=== PATIENT | female | born 1965 | race Caucasian/White ===

== ENCOUNTER → 2016-03-15 | Outpatient (CLI) | payer BC ==
[~2016-03-15] MED LIST: CLON0.5T3 PO
== END | disposition home or self-care (01) ==
LOC: C.PAPS 07:55
PROVIDERS: ATTEND Obstetrics & Gynecology
DX: Z01.419 Encounter for gynecological examination (general) (routine) without abnormal findings (principal)

== ENCOUNTER → 2016-08-16 | Outpatient (CLI) | payer BC | END | disposition home or self-care (01) | LOC: C.LABSPEC 11:18 | PROVIDERS: ATTEND Family Medicine | DX: N39.0 Urinary tract infection, site not specified (principal) ==

== ENCOUNTER → 2016-09-21 | Outpatient (CLI) | payer BC ==
--- NOTE | 2016-09-22 07:38 | MAMMOGRAPHY REPORT ---
BILATERAL DIGITAL SCREENING MAMMOGRAM TOMOSYNTHESIS WITH CAD: 09/21/2016 CLINICAL HISTORY: Routine screening. Patient has no complaints. TECHNIQUE: Breast tomosynthesis in addition to standard 2D mammography was performed. Current study was also evaluated with a Computer Aided Detection (CAD) system. COMPARISON: Comparison is made to exams dated: 09/11/2015 mammogram, 09/10/2014 mammogram - [facility], 07/02/2013 mammogram, 06/03/2012 mammogram, 04/20/2011 mammogram, and 04/20/2010 mammog yoly. BREAST COMPOSITION: The tissue of both breasts is heterogeneously dense, which may obscure small mas ses. FINDINGS: There is stable asymmetry in the superior posterior right breast. No new suspicious mass, architectural distortion or cluster of microcalcifications is seen bilaterally. IMPRESSION: ACR BI-RADS CATEGORY 1: NEGATIVE There is no mammographic evidence of malignancy. A 1 year screening mammogram is recommended. The pa tient will receive written notification of the results. Approximately 10% of breast cancers are not detected with mammography. A negative mammographic report should not delay biopsy if a clinically suggestive mass is present. Zamzam Gleason M.D. ay/:09/21/2016 16:03:38 [employer]: Radhika BRYANT(Marina)([place]), [facility] letter sent: Normal 1/2 BI-RADS Code: ACR BI-RADS Category 1: Negative
== END | disposition home or self-care (01) ==
LOC: C.MAMM 12:17
PROVIDERS: ATTEND Obstetrics & Gynecology
DX: Z12.31 Encounter for screening mammogram for malignant neoplasm of breast (principal)

== ENCOUNTER → 2017-03-25 | Outpatient (CLI) | payer OTHER | END | disposition home or self-care (01) | LOC: C.PAPS 13:20 | PROVIDERS: ATTEND Obstetrics & Gynecology | DX: Z01.419 Encounter for gynecological examination (general) (routine) without abnormal findings (principal) ==

== ENCOUNTER 2017-05-14 10:52 | Emergency (ER) | payer OTHER ==
[~2017-05-14] VITALS: Ht 170.2 cm; Wt 77.9 kg
[2017-05-14 11:03] VITALS: TEMP 37; Ht 170.2 cm; Wt 77.9 kg
[2017-05-14] MEDS ORDERED: IBUP-1050 PO (12:01)
--- NOTE | 2017-05-14 12:08 | DIAGNOSTIC IMAGING REPORT ---
L KNEE 3 VIEWS, R KNEE 3 VIEWS CLINICAL HISTORY: 52 years-old Female presenting with L knee pain, bilateral knee injury on ice while skating. TECHNIQUE: Frontal, lateral, and sunrise views of the right and left knees were obtained. COMPARISON: None. FINDINGS: Right knee: No acute fracture or malalignment. No advanced degenerative change. No radiographic soft tissue abnormality. Left knee: No acute fracture or malalignment. Minimal osteophytosis at the patellofemoral compartment. Trace knee joint effusion. IMPRESSION: 1. No acute osseous injury of the right or left knee. 2. Minimal degenerative change at the left patellofemoral compartment with trace knee joint effusion. Electronically signed by: Tan Manriquez M.D. 05/14/2017 12:07 PM Dictated Date/Time: 05/14/2017 12:06 PM
[2017-05-14 12:42] VITALS: BP 122/79; PULSE 68; O2SAT 98
--- NOTE | 2017-05-14 13:50 | EMERGENCY ROOM VISIT NOTE ---
History First contact with patient: 11:06 Chief Complaint: KNEEPAIN Stated Complaint: SWOLLEN L KNEE, FELL, CHECK R ALSO History of Present Illness The patient is a 52 year old female who presents to the Emergency Room with complaints of bilateral knee pain, left worse than right after falling 5 days ago while ice skating [place] the [employer]. The patient reports that she fell directly on the front of her right knee, and twisted the left knee. The patient denies any prior history of knee problems. She was an avid runner in years past. She reports a significant family history of osteoarthritis. The patient denies any pain, paresthesias or numbness extending into the leg or thigh. She denies back pain or other injuries from the fall, and rates her discomfort a 3 out of 10 with ambulation. Review of Systems 10 system review was performed and was negative except for pertinent positives and negatives as indicated in history of present illness Past Medical/Surgical History Medical Problems: (1) Dysplasia Of Cervix, Unspecified Surgical Problems: (1) History of cone biopsy of cervix (2) History of foot surgery Family History FH: heart disease FH: hypertension Social History Smoking Status: Never Smoker Alcohol Use: occasionally Marital Status: Housing Status: lives with family Occupation Status: employed Current/Historical Medications Scheduled Ibuprofen (Advil), 400 MG PO UD Scheduled PRN Clonazepam (Klonopin), 0.5 MG PO HS PRN for Insomnia Physical Exam Vital Signs Date Time Temp Pulse Resp B/P (MAP) Pulse Ox O2 Delivery O2 Flow Rate FiO2 05/14/17 12:42 68 18 122/79 98 05/14/17 11:03 37.0 67 18 125/80 99 Room Air Physical Exam CONSTITUTIONAL: Healthy and well nourished. Alert and oriented X 3 with positive affect. Patient does not appear in any acute distress. HEENT: Normocephalic, atraumatic. Pupils equal, round and reactive. MUSCULOSKELETAL: Examination of bilateral knees does not show any obvious soft tissue edema, ecchymosis or open wounds. The patient has minimal tenderness to palpation of the right patella. Otherwise she exhibits full active range of motion of the right knee without discomfort. No joint effusions noted bilaterally. The patient has no significant tenderness to palpation of the joint lines of the left knee. Ligamentous exam is normal bilaterally. INTEGUMENTARY: No rash or other significant dermatologic conditions noted. NEUROLOGIC: Lower extremities are sensory intact. Medical Decision & Procedures ER Provider Diagnostic Interpretation: My interpretation of bilateral knee x-ray shows only a mild joint effusion on the left, otherwise no other acute fractures or dislocations noted. Radiologist reports are as follows: L KNEE 3 VIEWS, R KNEE 3 VIEWS CLINICAL HISTORY: 52 years-old Female presenting with L knee pain, bilateral knee injury on ice while skating. TECHNIQUE: Frontal, lateral, and sunrise views of the right and left knees were obtained. COMPARISON: None. FINDINGS: Right knee: No acute fracture or malalignment. No advanced degenerative change. No radiographic soft tissue abnormality. Left knee: No acute fracture or malalignment. Minimal osteophytosis at the patellofemoral compartment. Trace knee joint effusion. IMPRESSION: 1. No acute osseous injury of the right or left knee. 2. Minimal degenerative change at the left patellofemoral compartment with trace knee joint effusion. ED Course Patient history and physical exam were performed. Nurse's notes were reviewed. Vital signs were reviewed and were normal. X-rays of bilateral knees are grossly normal except for a trace joint effusion on the left. X-rays were reviewed with the patient. Patient was encouraged to intermittently apply ice to the knees. The patient reports that she will be traveling to [facility] this week for spring. The patient was encouraged to try limiting activities as much as possible if knee pain persists. She was encouraged to follow-up with [facility] upon return if symptoms are not improving. The patient was happy with plan of care, voiced understanding of all discharge instructions, and denied any significant discomfort at the time of discharge. Medical Decision Medication Reconcilliation Current Medication List: was personally reviewed by me Blood Pressure Screening Patient's blood pressure: Normal blood pressure Impression Primary Impression: Bilateral knee contusions Additional Impression: Injury while ice skating Departure Information Referrals Chandan Earl M.D. (PCP) Patient Instructions My [facility] Problem Qualifiers
== END 2017-05-14 12:42 | disposition home or self-care (01) ==
LOC: C.EDB 10:54 → C.EDD 12:42
DX: S80.01XA Contusion of right knee, initial encounter (principal); S80.02XA Contusion of left knee, initial encounter; V00.211A Fall from ice-skates, initial encounter; Y92.330 Ice skating rink (indoor) (outdoor) as the place of occurrence of the external cause; Y93.21 Activity, ice skating; N87.9 Dysplasia of cervix uteri, unspecified; Z82.49 Family history of ischemic heart disease and other diseases of the circulatory system

== ENCOUNTER → 2017-07-04 | Outpatient (CLI) | payer OTHER ==
[~2017-07-04] MED LIST changes: +IBUP-1050 PO
--- NOTE | 2017-07-04 10:48 | DIAGNOSTIC IMAGING REPORT ---
MRI OF THE LEFT KNEE WITHOUT CONTRAST CLINICAL HISTORY: Lateral left knee pain following injury. COMPARISON STUDY: Knee radiograph June 29, 2017. TECHNIQUE: Utilizing a 1.5 Angelic magnet and dedicated coil, multiplanar, multiecho imaging of the left knee was performed without intravenous or intraarticular contrast. FINDINGS: Alignment of the left knee is anatomic. No joint effusion. No suspicious marrow replacement is noted. There is mild to moderate patellofemoral chondrosis, most pronounced within the trochlear cartilage. There is intrasubstance signal within the posterior horn of the medial meniscus without definite articular surface extension. Lateral meniscus is intact. There is no definite meniscal tear. There is increased signal and irregularity of the proximal posterior cruciate ligament. No full-thickness tear is present. The anterior cruciate ligament and medial collateral ligament are intact. There is thickening and slight irregularity of the fibular collateral ligament without adjacent edema. There is mild signal within the popliteus at the insertion on the lateral femoral condyle. IMPRESSION: 1. Findings consistent with a partial PCL tear. Intact ACL. 2. Intrasubstance signal within the posterior horn of the medial meniscus without definite articular surface extension to strongly suggest meniscal tear. 3. Thickening and irregularity of the fibular collateral ligament without adjacent edema which may reflect an old mild injury. 4. Increased signal within the popliteus at the femoral insertion which may reflect a partial tear/tendinopathy. 5. Mild to moderate patellofemoral chondrosis. Electronically signed by: Miguel Lawton M.D. 07/04/2017 10:47 AM Dictated Date/Time: 07/04/2017 9:51 AM
== END | disposition home or self-care (01) ==
LOC: C.MRIBC 08:51
PROVIDERS: ATTEND Orthopaedic Surgery
DX: M25.562 Pain in left knee (principal)

== ENCOUNTER → 2017-10-26 | Outpatient (CLI) | payer OTHER ==
[~2017-10-26] MED LIST changes: -CLON0.5T3 PO; +KLN/5 PO
--- NOTE | 2017-10-27 15:41 | MAMMOGRAPHY REPORT ---
BILATERAL DIGITAL SCREENING MAMMOGRAM TOMOSYNTHESIS WITH CAD: 10/26/2017 CLINICAL HISTORY: Routine screening. Patient has no complaints. TECHNIQUE: The study was acquired using full field digital technology and interpreted from soft copy. Breast tomosynthesis in addition to standard 2D mammography was performed. Current study was also ev aluated with a Computer Aided Detection (CAD) system. COMPARISON: Comparison is made to exams dated: 09/21/2016 mammogram, 09/11/2015 mammogram, 01/01/2015 mammogram, 09/18/2014 mammogram, 09/10/2014 mammogram - [facility], and 06/03/2012 mamm ogram. BREAST COMPOSITION: The tissue of both breasts is heterogeneously dense, which may obscure small mass es. FINDINGS: The parenchymal pattern is unchanged. No developing mass, architectural distortion or cluster of susp icious microcalcifications is seen in either breast. IMPRESSION: ACR BI-RADS CATEGORY 2: BENIGN There is no mammographic evidence of malignancy. A 1 year screening mammogram is recommended.( [id number]) The patient will receive written notification of the results. Some breast cancers are not detected with mammography. A negative mammographic report should not bronson y biopsy if a clinically suggestive mass is present. Zamzam Gleason M.D. ay/:10/26/2017 16:42:57 [employer] Hel[employer]: RT Latoya(Marina)(M)([place]), [facility] letter sent: Normal 1/2 BI-RADS Code: ACR BI-RADS Category 2: Benign
== END | disposition home or self-care (01) ==
LOC: C.MAMM 14:42
PROVIDERS: ATTEND Obstetrics & Gynecology
DX: Z12.31 Encounter for screening mammogram for malignant neoplasm of breast (principal)

== ENCOUNTER → 2017-10-31 | Outpatient (CLI) | payer OTHER | END | disposition home or self-care (01) | LOC: C.PATHSPEC 17:44 | PROVIDERS: ATTEND Obstetrics & Gynecology | DX: N93.9 Abnormal uterine and vaginal bleeding, unspecified (principal) ==